=== PATIENT | male | born 1980 | race Caucasian/White ===

== ENCOUNTER 2019-10-20 10:00 | Emergency (ER) | payer OTHER ==
[2019-10-21 12:11] LABS: SARS-CoV-2 MS2 Positive; SARS-CoV-2 N Gene Negative; SARS-CoV-2 S Gene Negative; SARS-CoV-2 orf1ab Negative
== END 2019-10-20 10:31 | disposition home or self-care (01) ==
LOC: ERS 10:00
DX: Z20.828 Contact with and (suspected) exposure to other viral communicable diseases (principal)
CPT/HCPCS: 87635; 99283; U0003